=== PATIENT | female | born 1970 | race Caucasian/White ===

== ENCOUNTER 2017-11-25 11:10 | Emergency (ER) | payer BC ==
[2017-11-25 11:31] VITALS: BP 178/101
--- NOTE | 2017-11-25 12:25 | RAD ---
Indication: Medial LEFT foot pain following direct trauma to weeks ago. Comparison: No relevant prior exams available on the [facility] [place] PACS for comparison. Technique: AP, lateral, and oblique views LEFT foot. Report: Negative for fracture or malalignment. Normal variant os tibiale externum accessory ossicle. 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 Small plantar fascia origin bone spur. Soft tissue swelling over the dorsum of the forefoot. IMPRESSION: Soft tissue swelling over the dorsum of the forefoot. Negative for fracture.
--- NOTE | 2017-11-25 12:58 | UC ---
Lower Extremity/Ankle HPI - HPI Summary HPI Summary: Patient is a 47-year-old female presenting to the with chief complaint of left dorsum foot pain and 2 weeks. She states the sharp end of a wooden block fell on top of the foot 2 weeks ago and has been in pain ever since, however she feels that area has been improving until yesterday when she reinjured it by twisting it. She is now having 5 out of 10 pain, constant and throbbing. Worse with ambulation, better with rest. She has not been taking ibuprofen and using ice for relief. She is otherwise healthy and takes no medications. She' s never injured the area before. She remains ambulatory. Full range of motion and strength. - History of Current Complaint Hx Obtained From: Patient ?: No Onset/Duration: Sudden Onset Severity Initially: Mild Severity Currently: Mild Pain Intensity: 1 Pain Scale Used: 0-10 Numeric Aggravating Factor(s): Standing, Ambulation Alleviating Factor(s): Rest, Elevation Able to Bear Weight: Yes - Risk Factors Gout Risk Factors: Age Over 40 DVT Risk Factors: Negative Septic Arthritis Risk Factor: Negative <Jacki Israel - Last Filed: 11/25/17 12:54> <Jillian Ontiveros - Last Filed: 11/25/17 14:20> - History of Current Complaint Chief Complaint: UCLowerExtremity Stated Complaint: FOOT INJURY Time Seen by Provider: 11/25/17 11:34 - Allergies/Home Medications Allergies/Adverse Reactions: Allergies Allergy/AdvReac Type Severity Reaction Status Date / Time No Known Allergies Allergy Verified 11/25/17 11:31 Home Medications: Home Medications Amlodipine Besylate [Norvasc 10 mg tab] 10 mg PO DAILY 11/25/17 [History Confirmed 11/25/17] Levothyroxine TAB* [Synthroid TAB*] 50 mcg PO 11/25/17 [History] Metformin HCl 500 mg PO 11/25/17 [History] Simvastatin 20 mg PO 11/25/17 [History] hydroCHLOROthiazide [Hydrochlorothiazide] 12.5 mg PO 11/25/17 [History] PMH/Surg Hx/FS Hx/Imm Hx Previously Healthy: Yes - Surgical History Surgical History: Yes Surgery Procedure, Year, and Place: 2 cysts removed, breast reduction, wisdom teeth extraction - Family History Known Family History: Positive: Unknown - Social History Occupation: Employed Full-time Lives: With Family Alcohol Use: Occasionally Substance Use Type: None Smoking Status (MU): Never Smoked Tobacco <Jacki Israel - Last Filed: 11/25/17 12:54> Review of Systems Constitutional: Negative Skin: Bruising - Dorsum of the left foot Eyes: Negative Respiratory: Negative Cardiovascular: Negative Genitourinary: Negative Motor: Negative Musculoskeletal: Arthralgia Neurological: Negative Is Patient Immunocompromised?: No All Other Systems Reviewed And Are Negative: Yes <Jacki Israel - Last Filed: 11/25/17 12:54> Physical Exam Triage Information Reviewed: Yes Appearance: Well-Appearing, Well-Nourished Vital Signs: Initial Vital Signs Temp 97.8 F 11/25/17 11:27 Pulse 97 11/25/17 11:27 Resp 18 11/25/17 11:27 BP 178/101 11/25/17 11:27 Pulse Ox 99 11/25/17 11:27 Vital Signs Reviewed: Yes Eye Exam: Normal Eyes: Positive: Conjunctiva Clear Neck exam: Normal Neck: Positive: Supple, No Lymphadenopathy Respiratory Exam: Normal Respiratory: Positive: Chest non-tender, Lungs clear Cardiovascular Exam: Normal Cardiovascular: Positive: RRR Musculoskeletal Exam: Normal Musculoskeletal: Positive: Strength Intact Neurological Exam: Normal Neurological: Positive: Alert Psychological: Positive: Normal Response To Family Skin: Positive: Other - ecchymosis <Jacki Israel - Last Filed: 11/25/17 12:54> Vital Signs: Initial Vital Signs Temp 97.8 F 11/25/17 11:27 Pulse 97 11/25/17 11:27 Resp 18 11/25/17 11:27 BP 178/101 11/25/17 11:27 Pulse Ox 99 11/25/17 11:27 <Jillian Ontiveros - Last Filed: 11/25/17 14:20> Lower Extremity Course/Dx - Course Course Of Treatment: Patient is evaluated for left dorsum foot contusion. There is a small amount of ecchymosis to the medial side of the dorsum of the left foot. Full range of motion and strength intact. Denies any numbness or tingling. Denies any temperature changes. Pulses +2 intact bilaterally both posterior tibial and pedal. X-ray obtained which shows soft tissue swelling over the dorsum of the forefoot. Negative for fracture. She is encouraged ibuprofen and will follow up with PCP for any worsening or changing symptoms. - Differential Dx/Diagnosis Provider Diagnoses: Left foot contusion <Jacki Israel - Last Filed: 11/25/17 12:54> Discharge - Sign-Out/Discharge Documenting (check all that apply): Discharge/Admit/Transfer - Billing Disposition and Condition Condition: STABLE Disposition: HOME <Jacki Israel - Last Filed: 11/25/17 12:54> - Billing Disposition and Condition Condition: STABLE Disposition: HOME <Jillian Ontiveros - Last Filed: 11/25/17 14:20> - Discharge Plan Condition: Stable Disposition: HOME Patient Education Materials: Foot Contusion (ED) Referrals: Ramón Mahoney MD [Primary Care Provider] - Additional Instructions: Ibuprofen 600mg three times daily Ice to the area Images Feet (Multiple View): 1 - ecchymosis <Jacki Israel - Last Filed: 11/25/17 12:54> Attestation Statement User Type: Provider - I was available for consult. This patient was seen by the ALICIA. The patient was not presented to, seen by, or examined by me. -King <Jillian Ontiveros - Last Filed: 11/25/17 14:20>
== END 2017-11-25 12:41 | disposition home or self-care (01) ==
LOC: UCEAST 11:10
DX: S90.32XA Contusion of left foot, initial encounter (principal); W20.8XXA Other cause of strike by thrown, projected or falling object, initial encounter; Y93.9 Activity, unspecified; Y92.9 Unspecified place or not applicable
CPT/HCPCS: 99211; G0463